=== PATIENT | female | born 2000 | race Caucasian/White ===

== ENCOUNTER 2020-06-13 06:09 | Emergency (ER) | payer SELFPAY ==
[2020-06-13 06:13] VITALS: BP 111/69; PULSE 85; RESP 16; TEMP 36.4; O2SAT 99; BMI 28.3
--- NOTE | 2020-06-13 06:20 | ED_ITS ---
HPI - Eye Problem General: Chief complaint: Eye Problems Stated complaint: Swelling in left eye Time Seen by Provider: 06/13/20 06:20 Source: patient Mode of arrival: ambulatory Limitations: no limitations History of Present Illness: HPI Narrative: Ximena is a nice 19-year-old female who comes in complaining of left eyelid swelling and eye irritation. She denies any vision loss or blurry vision. She denies any double vision. He states the pain is mostly on the surface of her eye and she has had some clear to slightly yellowish/green drainage from her eye at times. She feels as though her left eyelid is slightly swollen. She denies any injury to the eye. She denies any sensation of a foreign body in her eye. She states the pain is that of just a dull minor burning. She denies any other complaints or concerns. Associated symptoms: Denies fever(s), headache(s), nausea, neck pain or vomiting Review of Systems Const: Denies: fever(s), chills, body aches, fatigue, malaise or diaphoresis Eyes: Reports: eye discomfort; Denies: change in vision, blurry vision, photophobia, eye discharge, eye redness, yellow eyes or decreased night vision ENMT: Denies: throat pain, odynophagia, hoarseness, swelling of lips/tongue, ear or mastoid pain, ear discharge, change in hearing or nasal discharge Card: Denies: chest pain, palpitations, irregular heart rhythm, edema, lightheadedness, syncope, pre-syncope, dyspnea on exertion or orthopnea Resp: Denies: dyspnea, productive cough, non-productive cough, wheezing, hemoptysis or chest congestion GI: Denies: abdominal pain, nausea, vomiting, hematemesis, coffee ground emesis, heartburn, diarrhea, constipation, GI cramping, hematochezia or melena : Denies: flank pain, dysuria, urinary frequency, urinary urgency or hematuria Musc: Denies: neck pain, back pain, extremity pain, extremity swelling, joint pain, joint swelling, joint redness, joint warmth or joint stiffness Skin/Breast: Denies: rash, pruritus, erythema, skin pain or skin tenderness Neuro: Denies: headache(s), numbness in extremities, weakness in extremities, sensory changes, lack of coordination, difficulty walking, dizziness, vertigo, confusion, Slurred speech present or seizure-like activity Scott/Lymph: Denies: easy bruising, easy bleeding, petechiae, purpura or enlarged lymph nodes All/Imm: Denies: urticaria, throat swelling, tongue swelling, facial swelling or acute wheezing PFSH ED PFSH: Medical History No pertinent past medical history Physical Exam Const: COMMON NORMALS: no acute distress, patient oriented x3, no limitations and alert GENERAL APPEARANCE: cooperative HENMT: COMMON NORMALS: normocephalic, atraumatic, external ears normal, EAC's normal and Normal external nose present HEAD & SCALP: normal to inspection, normocephalic and atraumatic FACE & SINUS: normal facial exam and face symmetric NOSE: Normal external nose present and Normal nares present EXTERNAL EAR: Yes external ears normal EXTERNAL AUDITORY CANAL: EAC's normal MOUTH: Normal oral and palatal mucosa present, lip normal and tongue normal Eye: COMMON NORMALS: Equal, round and reactive pupils present and EOMs intact bilaterally GENERAL EYE: appearance normal, both eyes and all related structures ALIGNMENT: Yes alignment normal PERIORBITAL: periorbital findings normal EYELID: eyelid abnormality left upper eyelid swelling CONJUNCTIVA: Yes conjunctival abnormal positive left discharge mucoid SCLERA: sclerae normal PUPIL: Yes Equal, round and reactive pupils present Neck/C-Spine: COMMON NORMALS: full ROM, no lymphadenopathy, supple, no meningeal signs and no JVD GENERAL: Yes normal visual inspection and Yes trachea midline Chest: COMMONS NORMALS: normal inspection of the chest and normal palpation of entire chest wall Resp: COMMON NORMALS: normal respiratory effort, No retractions, No use of accessory muscles and clear to auscultation bilaterally EFFORT & INSPECTION: Yes able to speak in complete sentences and Yes symmetric chest movement AUSCULTATION: clear to auscultation bilaterally, no crackles, no rales, no rhonchi and no wheezes Cardio: COMMON NORMALS: no JVD, regular rate, regular rhythm, S1 normal heart sound present and S2 normal heart sound present RATE: regular rate RHYTHM: regular rhythm HEART SOUNDS: S1 normal heart sound present, S2 normal heart sound present, no click, no gallops, no murmurs and no rubs GI: COMMON NORMALS: Soft to palpation and No hepatosplenomegaly present PALPATION: Yes Soft to palpation, No Tenderness to palpation present (GI), No Guarding due to palpation present (GI), No Rigid due to palpation, Yes No hepatosplenomegaly present, No Hernia present, No Palpable mass present and No Pulsatile mass present : COMMON NORMALS: Yes no CVA tenderness BLADDER/KIDNEY EXAM: Yes no CVA tenderness EXTERNAL FEMALE EXAM: No Hernia present Back/Pelvis: COMMON NORMALS: no CVA tenderness, thoracic and lumbar spine normal to inspection, no thoracic nor lumbar tenderness and thoraco-lumbar ROM normal Extremity: COMMON NORMALS: normal to inspection, full ROM, capillary refill normal, no joint enlargement, no clubbing, cyanosis or edema and no calf tenderness Neuro: COMMON NORMALS: patient oriented x3, CN's II-XII intact bilaterally, moves all extremities, no focal motor deficits and no sensory deficits noted SENSORIUM/ORIENTATION: Yes alert MENINGEAL SIGNS: Yes no meningeal signs SPEECH: speech normal Psych: COMMON NORMALS: mental status grossly normal, Normal thought process present, cooperative, normal affect, speech normal and activity/motor behavior normal SPEECH: Yes normal speech THOUGHT PROCESS: Normal thought process present Skin: COMMON NORMALS: no rashes or lesions noted, turgor normal, no jaundice, no petechiae and no mottling GENERAL SKIN EXAM: no rashes or lesions noted and turgor normal Course Vital Signs: Vital signs: Vital Signs Temperature 97.5 F L 06/13/20 06:13 Pulse Rate 87 06/13/20 06:28 Respiratory Rate 16 06/13/20 06:13 Blood Pressure 111/69 06/13/20 06:13 Pulse Oximetry 96 06/13/20 06:28 MDM - Eye Problem MDM Narrative: Medical decision making narrative: Ximena is a nice 19-year-old female who comes in with the complaints of eye discomfort. Her exam and history are consistent with conjunctivitis. I saw no sign of foreign body. Her vision was normal. Patient has no headache or anything to suggest something more serious. Patient is willing to try erythromycin ointment and to follow-up as directed. She understands return for symptoms change or worsen. Discharge Plan Discharge Patient Disposition: Home Clinical Impression: Conjunctivitis Qualifiers: Conjunctivitis type: acute Acute conjunctivitis type: bacterial Laterality: r ight Qualified Code(s): H10.31 - Unspecified acute conjunctivitis, right eye Condition: Stable Prescriptions: New erythromycin 5 mg/gram (0.5 %) ointment 1 applic ophthalmic (eye) Q4H Qty: 3.5 RF: 0 Discharge Orders: Discharge Order (Routine); Ordered 06/13/20 Ordered By: Sirisha Sanchez Referrals: Evgeny De MD [Physician] - 1-3 days Evgeny Camara MD [Primary Care Provider] - 1-3 days Discharge Diet: Advance as tolerated Discharge Activity: Resume usual activity Patient Instructions: Conjunctivitis (ED) Activity Restrictions/Additional Instructions: Please return to the ER immediately for any of the signs or symptoms listed on your discharge instruction sheets, worsening/changing of your symptoms, you are not getting better as quickly as expected, or for ANY other cause or concerns. Coding Level of Care Code ED Developer Advocate for Chg Fwd Exam Comprehensive
[2020-06-13 06:28] VITALS: PULSE 87; O2SAT 96
== END 2020-06-13 06:28 | disposition home or self-care (01) ==
PROVIDERS: Emergency Provider Emergency Medicine; PCP Family Medicine
DX: H10.31 Unspecified acute conjunctivitis, right eye (principal)
CPT/HCPCS: 12345; 99281; 99282

== ENCOUNTER 2020-07-17 22:43 | Inpatient (IN) | payer SELFPAY ==
[2020-07-17 22:45] VITALS: BP 113/65; PULSE 103; RESP 18; TEMP 36.8; O2SAT 93
--- NOTE | 2020-07-17 23:11 | CTR_ITS ---
PROCEDURE INFORMATION: Exam: CT Head Without Contrast Exam date and time: 07/17/2020 11:27 PM Age: 19 years old Clinical indication: Altered mental status/memory loss; Confusion or disorientation; Patient HX: ETOH, intubated; Additional info: AMS TECHNIQUE: Imaging protocol: Computed tomography of the head without contrast. Radiation optimization: All CT scans at this facility use at least one of these dose optimization techniques: automated exposure control; mA and/or kV adjustment per patient size (includes targeted exams where dose is matched to clinical indication); or iterative reconstruction. COMPARISON: CT head wo con* [id number] 09/29/2018 11:01 AM RADIATION DOSE METRICS: Total DLP (mGy-cm): 791.47 FINDINGS: Brain: There are no areas of abnormally increased or decreased brain parenchymal attenuation. No abnormal intra-axial or extra-axial fluid collections are identified. There is no midline shift. No intracranial hemorrhage identified. Ventricles: The ventricular system is within normal limits for size and configuration. Bones/joints: Unremarkable as visualized. Sinuses: Visualized sinuses are unremarkable. No fluid levels. Mastoid air cells: Visualized mastoid air cells are well aerated. Soft tissues: Unremarkable. CT/CT head wo con* [id number] IMPRESSION: 1. No acute intracranial abnormality identified. Radiation Dose CTDIVOL = (mGy): DLP = 791.47 (mGy-cm)
--- NOTE | 2020-07-17 23:11 | CTR_ITS ---
PROCEDURE INFORMATION: Exam: CT Cervical Spine Without Contrast Exam date and time: 07/17/2020 11:27 PM Age: 19 years old Clinical indication: Other: AMS TECHNIQUE: Imaging protocol: Computed tomography images of the cervical spine without contrast. Radiation optimization: All CT scans at this facility use at least one of these dose optimization techniques: automated exposure control; mA and/or kV adjustment per patient size (includes targeted exams where dose is matched to clinical indication); or iterative reconstruction. COMPARISON: CT Cervical Spine wo* [id number] 09/29/2018 11:06 AM RADIATION DOSE METRICS: Total DLP (mGy-cm): 721.37 FINDINGS: Vertebrae: There is a normal cervical lordosis. There is normal alignment of the cervical spine. No fractures or dislocations identified. Vertebral body heights are well maintained throughout. Discs/Spinal canal/Neural foramina: Intervertebral disc heights are well maintained throughout. The bony spinal canal is patent. Soft tissues: No prevertebral soft tissue swelling identified. Lungs: Lung apices are unremarkable as visualized. CT/CT cervical spin wo con* [id number] IMPRESSION: 1. No fractures or dislocations identified involving the cervical spine. Radiation Dose CTDIVOL = (mGy): DLP = 721.37 (mGy-cm)
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
[2020-07-17] MEDS: succinylcholine 20 mg/mL SDV 10mL 200 MG IVP (23:18)
[2020-07-17] MEDS: midazolam 1 mg/mL INJ 2 mL 4 MG IVP (23:25)
[2020-07-17 23:30] LABS: Basophils # 0.1 10^3/uL (0.0-0.1); Basophils % 0.6 %; Eosinophils # 0.1 10^3/uL (0.0-0.8); Hemoglobin 14.4 g/dL (11.5-15.3); Lymphocytes # 3.4 10^3/uL (1.5-6.5); Lymphocytes % 34.5 %; Mean Corpuscular HGB Conc 33.5 g/dL (30.0-36.0); Mean Corpuscular Hemoglobin 31.2 pg (28.0-34.0); Mean Corpuscular Volume 93.1 fL (81-99); Mean Platelet Volume 9.3 fL (7.4-10.4); Monocytes # 0.4 10^3/uL (0.2-0.9); Monocytes % 4.1 %; Neutrophils # 5.87 10^3/uL (1.8-8.0); Neutrophils % 59.3 %; Nucleated Red Blood Cells % 0 %; Platelet Count 297 10^3/cmm (130-400); Red Blood Count 4.62 10^6/uL (4.1-5.3); Red Cell Distribution Width 12.3 % (12.1-15.1); White Blood Count 9.9 10^3/uL (4.5-13.0)
[2020-07-17] MEDS: sodium chloride 0.9% 1,000 ML 999 ML IV (23:30)
[2020-07-17 23:31] VITALS: RESP 12
[2020-07-17 23:50] LABS: Add Urine Microscopic? YES; Bilirubin Urine Neg (Negative); Blood Urine 3+ (Negative); Glucose Urine UA Norm (Normal); Ketones Urine Negative (Negative); Leukocyte Esterase Urine Negative (Negative); Nitrate Urine Negative (Negative); Protein Urine 1+ (Negative); Urine Appearance Clear (CLEAR); Urine Color Straw (Yellow); Urobilinogen Urine Norm (Negative); pH Urine 6 (5-7)
[2020-07-17 23:52] LABS: Alanine Aminotransferase 17 U/L (0-33); Albumin Level 4.7 g/dL (3.5-5.2); Alkaline Phosphatase 65 IU/L (35-105); Aspartate Amino Transferase 22 U/L (0-32); Blood Urea Nitrogen 13 mg/dL (6-20); Calcium 9.1 mg/dL (8.5-10.5); Carbon Dioxide 21 mmol/L (22-29); Chloride 105 mmol/L (98-107); Globulin 2.8 g/dL (1.3-4.6); Glomerular Filtration Rate 106.7 mL/min (90-130); Glucose 115 mg/dL (65-115); Magnesium 2.3 mg/dL (1.7-2.3); Osmolality Calculated 297 mOsm/kg (285-295); Sodium 143 mmol/L (136-145); Total Bilirubin 0.4 mg/dL (0.15-1.2); Total Protein 7.5 g/dL (6.6-8.7)
[2020-07-17 23:53] LABS: Acetaminophen < 5.0 ug/mL (10-30); Salicylate < 0.3 mg/dL (3-10)
[2020-07-17 23:54] LABS: Alcohol Level 358 mg/dL (0-10)
[2020-07-17 23:59] LABS: Add Urine Culture? No; Amorphous Sediment Urine 2+ /hpf; Bacteria Urine 1+ /hpf; RBC Urine 0-4 /hpf (0-2); Squamous Epithelial Cell Urine 0-4 /hpf (0-5); WBC Urine 0-4 /hpf (0-5)
[2020-07-18] VITALS (17 sets, daily range): BP systolic 86–139; BP diastolic 42–95; PULSE 78–146; RESP 12–21; TEMP 36.6; O2SAT 89–100
[2020-07-18] LABS: Amphetamines Screen Urine Negative (Negative); Barbiturates Screen Urine Negative (Negative); Benzodiazepines Screen Urine Negative (Negative); Cocaine Screen Urine Negative (Negative); Opiate Screen Urine Negative (Negative); PCP Screen Urine Negative (Negative); THC Screen Urine Positive (Negative)
[2020-07-18 00:23] LABS: HCG, Serum Qual Negative (Negative)
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
[2020-07-18 01:51] LABS: ABG PCO2 35.6 mmHg (35-45); ABG PH Result 7.34 (7.35-7.45); Arterial Blood Gas Hematocrit 41.7 % (37-47); Base Excess ABG -5.8 mmol/L (-2.0-2.0); Blood Gas Sample Site Brachial, right; Blood Gas Sample Type Arterial; Blood Gas Tidal Volume 0.45; HCO3 ABG 19.2 mmol/L (22-26); Oxygen Device VENT
[2020-07-18] MEDS: potassium chloride premix 100 ML 50 MEQ IV (01:57)
--- NOTE | 2020-07-18 02:21 | XRR_ITS ---
PROCEDURE INFORMATION: Exam: XR Chest, 1 View Exam date and time: 07/18/2020 3:08 AM Age: 19 years old Clinical indication: Device placement; Patient HX: ETOH, intubated; Additional info: Tube placement TECHNIQUE: Imaging protocol: XR of the chest Views: 1 view. COMPARISON: No relevant prior studies available. FINDINGS: Tubes, catheters and devices: Endotracheal tube, tip 2.8 cm above may. Nasogastric tube in the left upper quadrant of the abdomen at the expected region of the gastric body. Lungs: The lungs are clear bilaterally. Pulmonary vasculature within normal limits. Pleural space: No visible pneumothorax or pleural effusion. Heart/Mediastinum: Cardiomediastinal silhouette contour is within normal limits. Bones/joints: No emergent findings identified. XR/XR chest 1V [id number] IMPRESSION: 1. Endotracheal tube, tip 2.8 cm above may.
--- NOTE | 2020-07-18 02:23 | ECG_ITS ---
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 Measurements Intervals [place] Rate: 85 P: 52 OR: 169 QRS: 29 QRSD: 95 T: 37 QT: 384 QTc: 458 Interpretive Statements SINUS RHYTHM Compared to ECG 09/29/2018 10:17:40 Sinus tachycardia no longer present Intraventricular conduction delay no longer present T-wave abnormality no longer present Electronically Signed On 07-18-2020 17:50:43 TRUCK AND TRANSPORT MECHANIC by Dillon Shah M.D. [id number]
--- NOTE | 2020-07-18 03:22 | PC.NURSE ---
This RN agrees with data center solutions architect assessment
[2020-07-18] MEDS: enoxaparin 40 mg/0.4 mL Syringe SUBCUT (03:23)
[2020-07-18] MEDS: dextrose 5%-ns 0.45% + KCl 40 1,000 ML 75 MEQ IV (03:23)
[2020-07-18 05:06] LABS: Basophils % 0.4 %; Eosinophils # 0.1 10^3/uL (0.0-0.8); Eosinophils % 0.6 %; Hematocrit 38.1 % (37.0-47.0); Hemoglobin 12.6 g/dL (11.5-15.3); Lymphocytes % 28.8 %; Mean Corpuscular HGB Conc 33.1 g/dL (30.0-36.0); Mean Corpuscular Hemoglobin 31.3 pg (28.0-34.0); Mean Corpuscular Volume 94.8 fL (81-99); Mean Platelet Volume 9.4 fL (7.4-10.4); Monocytes # 0.8 10^3/uL (0.2-0.9); Monocytes % 7.2 %; Neutrophils # 6.46 10^3/uL (1.8-8.0); Neutrophils % 62.4 %; Nucleated Red Blood Cells % 0 %; Platelet Count 263 10^3/cmm (130-400); Red Blood Count 4.02 10^6/uL (4.1-5.3); Red Cell Distribution Width 12.7 % (12.1-15.1); White Blood Count 10.4 10^3/uL (4.5-13.0)
[2020-07-18 05:31] LABS: Lactate (Lactic Acid level) 2.2 mmol/L (0.5-2.2)
[2020-07-18 05:44] LABS: Anion Gap 16.8 (5-19); Blood Urea Nitrogen 10 mg/dL (6-20); Calcium 7.9 mg/dL (8.5-10.5); Carbon Dioxide 19 mmol/L (22-29); Chloride 110 mmol/L (98-107); Glomerular Filtration Rate 203.5 mL/min (90-130); Glucose 136 mg/dL (65-115); Magnesium 1.8 mg/dL (1.7-2.3); Osmolality Calculated 295 mOsm/kg (285-295); Potassium 3.8 mmol/L (3.5-5.1); Sodium 142 mmol/L (136-145)
--- NOTE | 2020-07-18 07:33 | PC.NURSE ---
CIWA protocol: Pt sedated and intubated. Unable to assess appropriately at this time.
[2020-07-18] MEDS: LORazepam 2 mg/mL INJ 1 mL IM (08:00)
--- NOTE | 2020-07-18 08:00 | PC.RESP ---
pt. self extubated . code 10 called on roomair no resp. distress
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
--- NOTE | 2020-07-19 14:28 | PC.RESP ---
Smoking Cessation information sent to patient.
== END 2020-07-18 08:40 | disposition left against medical advice (07) | DRG 208 ==
LOC: ER 22:47 → ICU 07-18 00:40
PROVIDERS: Admitting Provider Internal Medicine; Emergency Provider Emergency Medicine; PCP Family Medicine; Visit Provider Student in an Organized Health Care Education/Training Program
DX: J96.01 Acute respiratory failure with hypoxia (principal); F19.159 Other psychoactive substance abuse with psychoactive substance-induced psychotic disorder, unspecified; F10.129 Alcohol abuse with intoxication, unspecified; Y90.8 Blood alcohol level of 240 mg/100 ml or more; E87.6 Hypokalemia; F19.10 Other psychoactive substance abuse, uncomplicated; F17.210 Nicotine dependence, cigarettes, uncomplicated; Z53.29 Procedure and treatment not carried out because of patient's decision for other reasons
CPT/HCPCS: 12345; 31500; 36415; 36600; 70450; 71045; 72125; 80048; 80053; 80306; 80307; 81001; 82803; 83605; 83735; 84703; 85025; 93005; 94002; 94799; 96372; 99283; J0330; J1650; J2060; J2250; J3010; J3411; J3480; J3490; J7030

== ENCOUNTER 2022-06-30 05:50 | Outpatient (CLI) | payer BC, MEDICAID, SELFPAY ==
[2022-06-30 05:50] VITALS: BMI 30.7
[2022-06-30 06:11] VITALS: BP 118/72; PULSE 134
[2022-06-30 06:33] VITALS: BP 109/67; PULSE 125
[2022-06-30 06:35] VITALS: BP 109/67; PULSE 125; RESP 16; TEMP 37.5
== END 2022-06-30 06:38 | disposition home or self-care (01) ==
LOC: OPOB 05:57 → OBGYN 05:58
PROVIDERS: PCP Family Medicine; Visit Provider Family Medicine
DX: O26.899 Other specified pregnancy related conditions, unspecified trimester (principal); Z3A.00 Weeks of gestation of pregnancy not specified; R10.9 Unspecified abdominal pain
CPT/HCPCS: 59025; 99211

== ENCOUNTER 2022-06-30 21:30 | Inpatient (IN) | payer BC, MEDICAID, SELFPAY ==
[2022-06-30 21:28] VITALS: BP 102/61; PULSE 122; TEMP 36.6
[2022-06-30 21:30] VITALS: BMI 30.7
[2022-06-30 21:39] VITALS: BP 108/63; PULSE 118
[2022-06-30 21:55] VITALS: RESP 18
[2022-06-30] MEDS: oxytocin 30 UNIT/500 ML BAG IV (23:22)
[2022-06-30] MEDS: dextrose 5%-lactated ringers 1,000 ML 125 ML IV (23:22)
[2022-06-30 23:25] VITALS: BP 124/69; PULSE 105
[2022-06-30 23:45] VITALS: BP 106/70; PULSE 110
[2022-07-01] VITALS (110 sets, daily range): BP systolic 86–137; BP diastolic 50–83; PULSE 87–123; RESP 18; TEMP 36.2–37.4; O2SAT 97–100
[2022-07-01 00:04] LABS: Basophils # 0.1 10^3/uL (0.0-0.1); Basophils % 0.5 %; Eosinophils % 0.2 %; Hematocrit 32.2 % (37.0-47.0); Hemoglobin 10.5 g/dL (11.5-15.3); Lymphocytes # 1.7 10^3/uL (0.8-4.8); Lymphocytes % 11.5 %; Mean Corpuscular HGB Conc 32.6 g/dL (30.0-36.0); Mean Corpuscular Hemoglobin 29.7 pg (28.0-34.0); Mean Platelet Volume 10.8 fL (7.4-10.4); Monocytes # 1.6 10^3/uL (0.2-0.9); Monocytes % 10.7 %; Neutrophils # 10.78 10^3/uL (1.8-7.7); Neutrophils % 73.3 %; Nucleated Red Blood Cells % 0.1 %; Platelet Count 282 10^3/cmm (130-400); Red Blood Count 3.54 10^6/uL (4.1-5.3); Red Cell Distribution Width 14.6 % (12.1-15.1); White Blood Count 14.7 10^3/uL (4.0-10.0)
[2022-07-01] MEDS: fentaNYL 50 mcg/mL INJ 2mL IVP (03:32)
--- NOTE | 2022-07-01 05:47 | ANES.PREANE2 ---
Pre-Anesthetic Assessment Height/Weight: Height 1.65 m Weight 83.915 kg Temp Pulse Resp BP 98.2 F 115 H 18 106/59 07/01/22 05:39 07/01/22 05:28 07/01/22 03:32 07/01/22 05:28 Preop Diagnosis: labor epidural Was Beta Adrienne taken within 24 hours: N/A Was Clonidine taken within 24 hours: N/A Last Intake: 20:00 Social No alcohol and No tobacco 1/2 pack(s) per day 2 pack years Exam alert, oriented x 3, clear to auscultation bilaterally and regular rate & rhythm Airway Submandibular: within normal limits Cervical ROM: within normal limits Mallampati: Class I Dentition: full Pulmonary None reported flu A in house CV/HEM None reported None reported Hepatic None reported GI Gastroesophageal Reflux Disease IBS Metabolic None reported Musc/skel None reported Neuropsych None reported Anesthetic Plan ASA status: 2 Anesthesia: Regional (specify below) (epi) Medications/Allergies Home Medications Medication Instructions Recorded Confirmed Last Taken Type Vitamin 1 tab PO DAILY 06/30/22 06/30/22 06/29/22 08:00 History acetaminophen 325 mg capsule 325 mg PO 1XD PRN fever 06/30/22 06/30/22 06/30/22 03:30 History (Tylenol) Allergies Allergy/AdvReac Type Severity Reaction Status Date / Time albuterol Allergy Unknown Verified 06/13/20 06:13 Current Medications Generic Name Dose Route Start Last Admin Trade Name Freq PRN Reason Stop Dose Admin Fentanyl 25 - 100 mcg 07/01/22 03:13 07/01/22 03:32 Fentanyl 50 Mcg/Ml Inj 2ml IVP 25 mcg Q1H PRN Administration SEVERE PAIN Oxytocin 30 unit in 500 mls @ 1 mls/hr 06/30/22 22:30 06/30/22 23:22 Pitocin IV 1 milliunit/min .Q24H LAUREN 1 mls/hr Administration Protocol 1 MILLIUNIT/MIN Dextrose/Lactated Ringer's 1,000 mls @ 125 mls/hr 06/30/22 22:00 06/30/22 23:22 Dextrose 5%-Lactated Ringers IV 125 mls/hr .Q8H LAUREN Administration PFSH Anesthesia Medical History (Updated 07/19/20 @ 00:00 by ) Alcohol abuse Nicotine abuse No pertinent past medical history Surgical History (Updated 07/18/20 @ 00:26 by Nando Davies MD) No pertinent past surgical history Family History (Updated 07/18/20 @ 00:27 by Nando Davies MD) Other Family history non-contributory Social History (Updated 07/18/20 @ 00:27 by Nando Davies MD) Smoking and tobacco status: current every day smoker Alcohol intake: current Household members: significant other Housing: House Female Reproductive History : 1 Data Anesthesia 06/30/22 23:04 Short CBC 06/30/22 Range/Units 23:04 WBC 14.7 H (4.0-10.0) 10^3/uL Hgb 10.5 L (11.5-15.3) g/dL Hct 32.2 L (37.0-47.0) % MCV 91.0 (81-99) fl Plt Count 282 (130-400) 10^3/cmm Neut % (Auto) 73.3 % Neut # (Auto) 10.78 H (1.8-7.7) 10^3/uL Cardiac Studies: No Data to Display
--- NOTE | 2022-07-01 06:29 | ANES.PROC ---
Anesthesia Procedures Procedure/Date: 07/01/22 Epidural: Time Out Performed: Yes Consents Signed: Procedure Consent and NPO Consent Consent: requested by attending/covering physician, from patient, risks and benefits reviewed and patient agrees to proceed Lumbar Level: L3-L4 Epidural position: sitting Epidural procedure: sterile prep of area (betadine), 1% lidocaine to numb the area (3ml), 18 g needle, negative for paresthesia passed, neg for paresthesia, test dose given, 1.5% xylocaine 1:200k epi (3ml/2ml), 0.2% Ropivacaine bolus ml (5ml), placed PCEA, no systemic response, sterile dressing applied, L.U.D. no apparent complications and 0.2% Ropiavacaine @ mls/hr (13ml/hr)
[2022-07-01] MEDS: lactated ringers 1,000 ML 999 ML IV (07:10)
--- NOTE | 2022-07-01 09:36 | PM.OBGYHP ---
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 Patient was found to be ruptured and had meconium. Patient was 1 cm dilation at presentation. Was not having any significant contractions. Patient has been having flulike symptoms and been exposed to flu A. Overall her has been unremarkable except for late entrance into care and positive marijuana on initial lab work. Patient was started on Pitocin last night and developed contractions to the point where they were painful enough for her to request an epidural. And has changed slowly to 3 cm dilation. Present Details : 1 Para: 0 Review of Systems General: Reports: 10 or more systems reviewed and unremarkable except in HPI and below Const: Reports: chills, body aches and fatigue ENMT: Reports: throat pain and nasal congestion Resp: Reports: non-productive cough Medications/Allergies Home Medications Medication Instructions Recorded Confirmed Last Taken Type Vitamin 1 tab PO DAILY 06/30/22 06/30/22 06/29/22 08:00 History acetaminophen 325 mg capsule 325 mg PO 1XD PRN fever 06/30/22 06/30/22 06/30/22 03:30 History (Tylenol) Allergies Allergy/AdvReac Type Severity Reaction Status Date / Time albuterol Allergy Unknown Verified 06/13/20 06:13 PFSH 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 PFSH: Medical History (Updated 07/01/22 @ 09:45 by Aidan Gonzalez MD) Alcohol abuse Nicotine abuse No pertinent past medical history Surgical History (Updated 07/18/20 @ 00:26 by Nando Davies MD) No pertinent past surgical history Family History (Updated 07/18/20 @ 00:27 by Nando Davies MD) Other Family history non-contributory Social History (Updated 07/18/20 @ 00:27 by Nando Daveis MD) Smoking and tobacco status: current every day smoker Alcohol intake: current Household members: significant other Housing: House Vitals/I&O/Wt Last Vital Signs Temp 97.7 F 07/01/22 06:23 Pulse 112 H 07/01/22 09:24 Resp 18 07/01/22 04:21 BP 112/51 07/01/22 09:24 Pulse Ox 100 07/01/22 07:11 O2 Del Method 06/30/22 21:30 06/30/22 07/01/22 07/01/22 22:59 06:59 14:59 Intake Total 6.633 / 6.633 33.983 / 33.983 Balance 6.633 / 6.633 33.983 / 33.983 Weight last 48 hrs Weight 83.915 kg Physical Exam Const: COMMON NORMALS: no acute distress and alert HENMT: COMMON NORMALS: normocephalic and moist oral mucous membranes Neck/C-Spine: COMMON NORMALS: no lymphadenopathy and supple Chest: COMMONS NORMALS: normal inspection of the chest Resp: COMMON NORMALS: normal respiratory effort, No retractions and clear to auscultation bilaterally Cardio: COMMON NORMALS: regular rate and regular rhythm Extremity: COMMON NORMALS: no clubbing, cyanosis or edema Psych: COMMON NORMALS: mental status grossly normal and normal affect Skin: COMMON NORMALS: no rashes or lesions noted Urinary Catheter Management: Rose: Cath Placed During This Visit: yes Urinary Catheter Date of Insertion: 07/01/22 Urinary Catheter Time of Insertion: 07:15 Data 06/30/22 23:04 A&P Assessment and plan (1) Term : Routine labor management (2) Premature rupture of membranes (PROM) affecting first : continue with augmentation of labor (3) Meconium in amniotic fluid: 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 Attestations Medical Necessity Statement*: Anticipate greater than 2 midnight stay Coding Level of Care Code Acute System Support Developer for Chg Fwd Diagnoses Term Z34.90 Premature rupture of membranes (PROM) affecting first O42.90 Meconium in amniotic fluid P96.83
[2022-07-01] MEDS: dextrose 5%-lactated ringers 1,000 ML 125 ML IV (10:50)
[2022-07-01] MEDS: acetaminophen 325 mg Tablet 650 MG PO (15:59)
--- NOTE | 2022-07-01 19:43 | PM.OPHPUD ---
Labor & Delivery H&P Update Date of Procedure: July 01, 2022 Date H&P Performed: 07/01/22 Changes to previous documentation: The patient has been on Pitocin all day without significant change. Patient has gone greater than 6 hours without cervical changes. Cussed options with the patient the patient opted to proceed with . The heart tones have been reassuring throughout the day. Admission Diagnosis: Preop diagnosis: labor Primary indication for procedure: Failure to progress Planned procedure: Primary low transverse Related Problem List Diagnoses (1) Failure to progress in labor: Plan to proceed with . Risks and benefits were discussed with the patient and informed consent was obtained. (2) Meconium in amniotic fluid: (3) Premature rupture of membranes (PROM) affecting first : (4) Term :
[2022-07-01] MEDS: citric acid-sodium citrate 30 mL UDC PO (20:06)
[2022-07-01] MEDS: metoclopramide 5 mg/mL SDV 2 mL 10 MG IVP (20:08)
[2022-07-01] MEDS: famotidine 20 mg/2 mL INJ IVP (20:08)
--- NOTE | 2022-07-01 21:43 | PM.OP ---
Operative Report Date of procedure: July 01, 2022 Pre-op diagnosis: 39-week 6-day IUP, failure to progress Post-op diagnosis: Same Post-op findings: Viable infant male Procedure done: Primary low transverse Surgeon: Dr. Romeo Gonzalez Senior Communications Specialist: Dr. Tk Perdomo Estimated blood loss: 300cc Complications: none Brief History: This is a 21-year-old that presented at 39 weeks 5 days with premature rupture membranes. Patient had failure to progress after dosing augmentation. Procedure: Patient was taken to the operating room where epidural anesthesia was found to be adequate. She was prepped and draped in the normal sterile fashion in a dorsal supine position with a leftward tilt. Skin incision was made with scalpel and carried out to the underlying layer of fascia which was incised in the midline. Fascial incision was then extended laterally with Jonas scissors bilaterally. The superior aspect of the fascial incision was grasped with Minh clamps elevated and dissected off the rectus muscles with Jonas's. The inferior aspect of the fascial incision was grasped with Mauricio's and in likewise manner was elevated and dissected off with Jonas's. Peritoneum was then entered digitally and extended with good visualization of the bladder. Bladder blade was then inserted. Uterine incision was then created in a transverse fashion in the lower uterine segment with scalpel and extended digitally. Meconium stained fluid noted. 's head was delivered atraumatically nose and mouth suctioned with bulb, cord clamped and cut and handed off to waiting nursing staff. The placenta was then expressed and uterus exteriorized from the abdomen. And cleared of all clots and debris. Uterine incision was then repaired in a running locked fashion with 0 Vicryl. A second suture of the same was then used to imbricate the incision. Excellent hemostasis was noted. Uterus was then returned to the abdomen, gutters were cleared of all clots and debris and wound was irrigated. Peritoneum was then closed in a running fashion with 3-0 Vicryl. Fascia was then closed with 0 Vicryl in a running fashion. Subcutaneous tissue was closed with 3-0 Vicryl and skin was closed with 4-0 Monocryl on a Csear needle. The incision was reinforced with Steri-Strips and pressure bandage was over the wound. Sponge, laps, and needle count was correct x2. 2 g Ancef was given prior to the procedure. Patient was taken recovery in stable condition.
--- NOTE | 2022-07-01 22:00 | ANE.PACU2 ---
Inpatient post-anesthesia follow up: Airway intact: Yes Vital signs: Temperature 97.2 F Pulse Rate 93 Respiratory Rate 18 Blood Pressure 110/58 Pulse Oximetry 98 Oxygen Delivery Me thod Room Air Oxygen Flow Rate Fraction of Inspir ed Oxygen Hydration adequate: Yes Nausea and vomiting: No Pain level: 1 Mental status: Baseline
[2022-07-02] VITALS (20 sets, daily range): BP systolic 94–127; BP diastolic 52–86; PULSE 79–100; RESP 16; TEMP 36.1
[2022-07-02] MEDS: dextrose 5%-lactated ringers 1,000 ML 125 ML IV ×2 (01:59→08:27)
[2022-07-02] MEDS: HYDROcodone-acetaminophen 5-325 mg Tablet PO ×4 (02:37→20:05)
[2022-07-02] MEDS: ketorolac 30 mg/mL INJ IVP ×3 (03:45→15:40)
[2022-07-02] MEDS: prenatal vitamin Capsule 1 CAP PO (08:26)
[2022-07-02] MEDS: docusate sodium 100 mg Capsule PO ×2 (08:26→17:33)
[2022-07-02] MEDS: ferrous sulfate EC 325 mg Tablet PO ×2 (08:26→17:33)
--- NOTE | 2022-07-02 09:28 | PM.OBGYPN ---
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 Patient had no acute events overnight. VSS. Patient has been up out of bed, but catheter is still place. Labor: Station: -2 Amniotic Membrane Status: Leaking Monitor Mode: External Contraction Pattern: Occasional Post /CS: Patient comments OB post-: no complaints and pain well controlled [place] baby status: doing well feeding status: exclusively breast feeding Vitals/I&O/Wt Last Vital Signs Temp 97.0 F L 07/02/22 08:42 Pulse 89 07/02/22 08:42 Resp 16 07/02/22 02:20 BP 119/76 07/02/22 08:42 Pulse Ox 98 07/01/22 22:05 O2 Del Method 07/01/22 22:05 07/01/22 07/02/22 07/02/22 22:59 06:59 14:59 Intake Total 1089.267 / 2265.950 1200 / 3465.950 Output Total 800 / 1250 1950 / 3200 Balance 289.267 / 1015.950 -750 / 265.950 Weight last 48 hrs Weight 83.915 kg Physical Exam Const: COMMON NORMALS: no acute distress and healthy appearing Neck/C-Spine: COMMON NORMALS: supple Resp: COMMON NORMALS: normal respiratory effort and No retractions Cardio: COMMON NORMALS: regular rate and regular rhythm RATE: regular rate RHYTHM: regular rhythm GI: COMMON NORMALS: Normal to inspection, nondistended, normoactive bowel sounds present and Soft to palpation PALPATION: Yes Soft to palpation Extremity: COMMON NORMALS: no clubbing, cyanosis or edema Neuro: COMMON NORMALS: moves all extremities Psych: COMMON NORMALS: mental status grossly normal and normal affect Skin: COMMON NORMALS: no rashes or lesions noted GENERAL SKIN EXAM: no rashes or lesions noted WOUNDS: Yes surgical site (CDI) Urinary Catheter Management: Rose: Cath Placed During This Visit: yes Reason for Continuing Indwelling Catheter: Required Immobilization for Trauma or Surgery or Anesthesia Urinary Catheter Date of Insertion: 07/01/22 Urinary Catheter Time of Insertion: 07:15 Data 06/30/22 23:04 A&P Assessment and plan (1) care following delivery: continue routine post care post csection. Attestations Medical Necessity Statement*: Anticipate greater than 2 midnight stay. Coding Level of Care Code Acute Maternity Floor Supervisor for Chg Fwd Diagnoses care following delivery Z39.2
[2022-07-02 14:43] LABS: Hematocrit 29.1 % (37.0-47.0); Hemoglobin 9.2 g/dL (11.5-15.3); Mean Corpuscular HGB Conc 31.6 g/dL (30.0-36.0); Mean Corpuscular Hemoglobin 29.7 pg (28.0-34.0); Mean Corpuscular Volume 93.9 fl (81-99); Mean Platelet Volume 10.3 fL (7.4-10.4); Platelet Count 205 10^3/cmm (130-400); Red Cell Distribution Width 14.9 % (12.1-15.1); White Blood Count 14.3 10^3/uL (4.0-10.0)
[2022-07-02] MEDS: ibuprofen 800 mg tablet PO (20:06)
[2022-07-03] MEDS: HYDROcodone-acetaminophen 5-325 mg Tablet PO ×2 (03:30→20:25)
[2022-07-03 04:32] VITALS: BP 110/63; PULSE 97
--- NOTE | 2022-07-03 07:23 | PM.OBGYPN ---
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 Patient has been up out of bed and urinated on her own. Patient's pain is controlled on current medications. Patient has no concerns today. There were no nursing concerns. Labor: Station: -2 Amniotic Membrane Status: Leaking Monitor Mode: External Contraction Pattern: Occasional Post /CS: Patient comments OB post-: no complaints, pain well controlled and tolerating diet baby status: doing well and nursing well feeding status: exclusively breast feeding Vitals/I&O/Wt Last Vital Signs Temp 97.0 F L 07/02/22 08:42 Pulse 97 07/03/22 04:32 Resp 16 07/02/22 02:20 BP 110/63 07/03/22 04:32 Pulse Ox 98 07/01/22 22:05 O2 Del Method 07/01/22 22:05 Physical Exam Const: COMMON NORMALS: no acute distress and healthy appearing Neck/C-Spine: COMMON NORMALS: supple Resp: COMMON NORMALS: normal respiratory effort and No retractions Cardio: COMMON NORMALS: regular rate and regular rhythm RATE: regular rate RHYTHM: regular rhythm GI: COMMON NORMALS: Normal to inspection, nondistended, normoactive bowel sounds present and Soft to palpation PALPATION: Yes Soft to palpation Extremity: COMMON NORMALS: no clubbing, cyanosis or edema Neuro: COMMON NORMALS: moves all extremities Psych: COMMON NORMALS: mental status grossly normal and normal affect Skin: COMMON NORMALS: no rashes or lesions noted GENERAL SKIN EXAM: no rashes or lesions noted WOUNDS: Yes surgical site (CDI) Urinary Catheter Management: Rose: Cath Placed During This Visit: yes, but has since been removed by the nurse Reason for Continuing Indwelling Catheter: Decision to DC Catheter Urinary Catheter Date of Insertion: 07/01/22 Urinary Catheter Time of Insertion: 07:15 Date Urinary Catheter Removed: 07/02/22 Time Urinary Catheter Discontinued: 10:00 Data 07/02/22 10:05 A&P Assessment and plan (1) care following delivery: Continue routine care. Attestations Medical Necessity Statement*: Anticipate discharge tomorrow Coding Level of Care Code Acute Pipe Foreman for Chg Fwd Diagnoses care following delivery Z39.2
[2022-07-03] MEDS: prenatal vitamin Capsule 1 CAP PO (09:50)
[2022-07-03] MEDS: ferrous sulfate EC 325 mg Tablet PO ×2 (09:50→20:33)
[2022-07-03] MEDS: ibuprofen 800 mg tablet PO ×3 (09:51→20:25)
[2022-07-03] MEDS: docusate sodium 100 mg Capsule PO ×2 (09:51→20:25)
[2022-07-03 09:53] VITALS: BP 112/64; PULSE 96; TEMP 36.1
[2022-07-03 15:50] VITALS: BP 113/76; PULSE 101
[2022-07-03 22:13] VITALS: BP 121/65; PULSE 85; TEMP 36.1
[2022-07-04] MEDS: HYDROcodone-acetaminophen 5-325 mg Tablet PO ×3 (00:32→13:14)
[2022-07-04 03:56] VITALS: BP 120/82; PULSE 96; TEMP 36.1
--- NOTE | 2022-07-04 07:18 | PM.OBGYDC ---
Discharge Providers PIPELINE INTEGRITY ENGINEER Date of Admission: 06/30/22 21:30 Date of Discharge: 07/04/22 Attending Provider at Admission: Aidan Gonzalez MD Attending Provider at Discharge: Aidan Gonzalez MD Primary Care Provider: Evgeny Camara MD Diagnoses at Discharge Discharge Diagnosis (1) care following delivery: Status: Acute Reason for Visit Reason for Visit: possible srom Brief History: This is a 21 y/o that presented with PROM Hospital Course Hospital Course The patient was found to be ruptured, but was not actively ana. Pitocin was started and the patient eventually started ana regularly. The contractions continued to increase to the point the patient wanted epidural. contractions were augmented over the next 20hours with only minimal changes. After discussion of options the patient had decided to proceed with for failure to progress. Patient underwent without incident or complication. Patient's care was unremarkable. Patient's pain was well controlled with oral medications. Lochia was appropriate. Information Peripartum Data: Infant Delivery Method: Physical Exam Const: COMMON NORMALS: no acute distress and healthy appearing Neck/C-Spine: COMMON NORMALS: supple Resp: COMMON NORMALS: normal respiratory effort and No retractions Cardio: COMMON NORMALS: regular rate and regular rhythm RATE: regular rate RHYTHM: regular rhythm GI: COMMON NORMALS: Normal to inspection, nondistended, normoactive bowel sounds present and Soft to palpation PALPATION: Yes Soft to palpation Extremity: COMMON NORMALS: no clubbing, cyanosis or edema Neuro: COMMON NORMALS: moves all extremities Psych: COMMON NORMALS: mental status grossly normal and normal affect Skin: COMMON NORMALS: no rashes or lesions noted GENERAL SKIN EXAM: no rashes or lesions noted WOUNDS: Yes surgical site (CDI) Urinary Catheter Management: Rose: Cath Placed During This Visit: yes, but has since been removed by the nurse Reason for Continuing Indwelling Catheter: Decision to DC Catheter Urinary Catheter Date of Insertion: 07/01/22 Urinary Catheter Time of Insertion: 07:15 Date Urinary Catheter Removed: 07/02/22 Time Urinary Catheter Discontinued: 10:00 Discharge Data Studies Completed and Pending Laboratory Results WBC 14.3 10^3/uL (4.0-10.0) H 07/02/22 10:05 RBC 3.10 10^6/uL (4.1-5.3) L 07/02/22 10:05 Hgb 9.2 g/dL (11.5-15.3) L 07/02/22 10:05 Hct 29.1 % (37.0-47.0) L 07/02/22 10:05 MCV 93.9 fl (81-99) 07/02/22 10:05 MCH 29.7 pg (28.0-34.0) 07/02/22 10:05 MCHC 31.6 g/dL (30.0-36.0) 07/02/22 10:05 RDW 14.9 % (12.1-15.1) 07/02/22 10:05 Plt Count 205 10^3/cmm (130-400) 07/02/22 10:05 MPV 10.3 fL (7.4-10.4) 07/02/22 10:05 Neut % (Auto) 73.3 % 06/30/22 23:04 Lymph % (Auto) 11.5 % 06/30/22 23:04 [place] % (Auto) 10.7 % 06/30/22 23:04 Eos % (Auto) 0.2 % 06/30/22 23:04 Baso % (Auto) 0.5 % 06/30/22 23:04 Neut # (Auto) 10.78 10^3/uL (1.8-7.7) H 06/30/22 23:04 Lymph # (Auto) 1.7 10^3/uL (0.8-4.8) 06/30/22 23:04 [place] # (Auto) 1.6 10^3/uL (0.2-0.9) H 06/30/22 23:04 Eos # (Auto) 0.0 10^3/uL (0.0-0.8) 06/30/22 23:04 Baso # (Auto) 0.1 10^3/uL (0.0-0.1) 06/30/22 23:04 Nucleated RBC % (auto) 0.1 % 06/30/22 23:04 Nucleated RBCs # 0.0 /100WBC 06/30/22 23:04 Vitals Last Vital Signs Temp 97.0 F L 07/04/22 03:56 Pulse 96 07/04/22 03:56 Resp 16 07/02/22 02:20 BP 120/82 07/04/22 03:56 Pulse Ox 98 07/01/22 22:05 O2 Del Method 07/04/22 04:00 Discharge Plan Discharge Patient Disposition: Home Condition: Stable Prescriptions: New hydrocodone-acetaminophen 5-325 mg Tablet 1 tab PO Q4H PRN (Reason: Moderate To Severe Pain) Qty: 30 0RF Continued acetaminophen [Tylenol] 325 mg Capsule 325 mg PO 1XD PRN (Reason: fever) Vitamin 1 tab PO DAILY Discharge Orders: Discharge Order (Routine); Ordered 07/04/22 Ordered By: Aidan Gonzalez Discharge Diet: Usual diet Discharge Activity: Limit activity as instructed Patient Instructions: Opioid Safety Discharge Attestations PIPELINE INTEGRITY ENGINEER Time Spent in Discharge Care*: less than 30 min Coding Level of Care Code Acute Astronomy Professor for Chg Fwd Diagnoses care following delivery Z39.2
[2022-07-04] MEDS: ferrous sulfate EC 325 mg Tablet PO (08:26)
[2022-07-04] MEDS: ibuprofen 800 mg tablet PO (08:26)
[2022-07-04] MEDS: docusate sodium 100 mg Capsule PO (08:26)
[2022-07-04] MEDS: prenatal vitamin Capsule 1 CAP PO (08:26)
[2022-07-04 10:10] VITALS: BP 121/85; PULSE 100; TEMP 36.8
[2022-07-04 14:26] VITALS: BP 127/84; PULSE 93
[2022-07-04 14:27] VITALS: TEMP 36.5
[2022-07-04 15:00] VITALS: BP 127/84; PULSE 93; RESP 16; TEMP 36.5
== END 2022-07-04 14:57 | disposition home or self-care (01) | DRG 788 ==
PROVIDERS: Admitting Provider Family Medicine; PCP Family Medicine; Visit Provider Family Medicine
PROC: 10D00Z1 Extraction of Products of Conception, Low, Open Approach (ICD-10-PCS; CPT 59514; principal; 2022-07-01 20:30)
DX: O61.0 Failed medical induction of labor (principal); O77.0 Labor and delivery complicated by meconium in amniotic fluid; O99.334 Smoking (tobacco) complicating childbirth; F17.210 Nicotine dependence, cigarettes, uncomplicated; O42.92 Full-term premature rupture of membranes, unspecified as to length of time between rupture and onset of labor; Z3A.39 39 weeks gestation of pregnancy; Z37.0 Single live birth
CPT/HCPCS: 36415; 51702; 59025; 59409; 85025; 85027; 96374; 96376; 98960; 99211; J1885; J2590; J2765; J2795; J3010; J3490; J7030; J7120; J7121

== ENCOUNTER 2023-11-07 05:54 | Inpatient (IN) | payer BC, MEDICAID, SELFPAY ==
[2023-11-07] VITALS (7 sets, daily range): BP systolic 93–117; BP diastolic 59–67; PULSE 70–83; RESP 16–17; O2SAT 100; BMI 33.9
[2023-11-07 06:28] LABS: Basophils # 0.1 10^3/uL (0.0-0.1); Basophils % 0.5 %; Eosinophils # 0.2 10^3/uL (0.0-0.8); Eosinophils % 1.4 %; Hematocrit 35.7 % (36-47); Lymphocytes # 2.6 10^3/uL (0.8-4.8); Lymphocytes % 18.9 %; Mean Corpuscular HGB Conc 32.8 g/dL (30-55); Mean Corpuscular Hemoglobin 29.8 pg (27-33); Mean Corpuscular Volume 91.1 fl (85-98); Mean Platelet Volume 9.7 fL (7.4-10.4); Monocytes # 1.1 10^3/uL (0.2-0.9); Monocytes % 7.9 %; Neutrophils # 9.33 10^3/uL (1.8-7.7); Neutrophils % 68.8 %; Nucleated Red Blood Cells % 0 %; Platelet Count 316 10^3/cmm (157-399); Red Blood Count 3.92 10^6/uL (3.85-5.65); Red Cell Distribution Width 14.8 % (12.1-15.1); White Blood Count 13.56 10^3/uL (3.29-11.43)
[2023-11-07 06:33] LABS: Amphetamines Screen Urine Negative (Negative); Barbiturates Screen Urine Negative (Negative); Benzodiazepines Screen Urine Negative (Negative); Cocaine Screen Urine Negative (Negative); Opiate Screen Urine Negative (Negative); PCP Screen Urine Negative (Negative); THC Screen Urine Negative (Negative)
--- NOTE | 2023-11-07 06:40 | P.HP_ITS ---
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 She denies any acute concerns today. Patient care has been unremarkable except for a brief period of poor care. Consent form for tubal ligation was signed on September 14, 2023. Patient's recent GBS was negative. labs were unremarkable Present Details : 3 Para: 1 Obstetrical complications: none Medical complications OB: none Labs Blood type OB HPI: A (+) positive Rubella: Non-Immune RPR: Negative GBS: Negative HBsAG: Negative Specific History Indications for Section: Repeat Review of Systems 2 General: Reports: 10 or more systems reviewed and unremarkable except in HPI and below Medications/Allergies Home Medications Medication Instructions Recorded Confirmed Last Taken Type Vitamin 1 tab PO DAILY 06/30/22 06/30/22 06/29/22 08:00 History acetaminophen 325 mg capsule 325 mg PO 1XD PRN fever 06/30/22 06/30/22 06/30/22 03:30 History (Tylenol) hydrocodone 5 mg-acetaminophen 325 1 tab PO Q4H PRN Moderate To 07/04/22 Unknown Rx mg tablet Severe Pain #30 tabs Allergies Allergy/AdvReac Type Severity Reaction Status Date / Time albuterol Allergy Unknown Verified 06/13/20 06:13 PFSH COIN MACHINE SERVICER REPAIRER 2 PFSH: Medical History (Updated 11/07/23 @ 06:50 by Aidan Gonzalez MD) Nicotine abuse Alcohol abuse No pertinent past medical history Surgical History (Updated 11/07/23 @ 06:50 by Aidan Gonzalez MD) No pertinent past surgical history Family History (Updated 07/18/20 @ 00:27 by Nando Davies MD) Other Family history non-contributory Social History (Updated 07/18/20 @ 00:27 by Nando Davies MD) Smoking and tobacco/nicotine status: current every day tobacco/nicotine user Alcohol intake: current Substance/Drug Use: current Household members: significant other Housing: House History History History 2 3 Term 1 0 Miscarriages/Ectopic 1 Living Children 1 Physical Exam 2 Const: COMMON NORMALS: no acute distress and healthy appearing Neck/C-Spine: COMMON NORMALS: supple Resp: COMMON NORMALS: normal respiratory effort and No retractions Cardio: COMMON NORMALS: regular rate and regular rhythm RATE: regular rate RHYTHM: regular rhythm GI: OTHER: Gravid uterus Extremity: COMMON NORMALS: no clubbing, cyanosis or edema Neuro: COMMON NORMALS: moves all extremities Psych: COMMON NORMALS: mental status grossly normal and normal affect Skin: COMMON NORMALS: no rashes or lesions noted Data 11/07/23 06:15 Results Labs OB ([facility]): 2 Blood Type Pending 11/07/23 Antibody Screen Pending 11/07/23 Hct 35.7 % (36-47) L 11/07/23 Hgb 11.70 g/dL (11.27-16.99) 11/07/23 Rho(D) Type Pending 11/07/23 Plt Count 316 10^3/cmm (157-399) 11/07/23 HCG, Qual Negative (Negative) 07/17/20 Urine Opiates Screen Negative ng/mL (Negative) 11/07/23 Ur Barbiturates Screen Negative ng/mL (Negative) 11/07/23 Ur Phencyclidine Scrn Negative ng/mL (Negative) 11/07/23 Ur Amphetamines Screen Negative ng/mL (Negative) 11/07/23 U Benzodiazepines Scrn Negative ng/mL (Negative) 11/07/23 Urine Cocaine Screen Negative ng/mL (Negative) 11/07/23 U Marijuana (THC) Screen Negative ng/mL (Negative) 11/07/23 A&P Assessment and plan (1) Multigravida in third trimester: Plan to proceed with repeat low-transverse . Henrik procedure at length with the patient and consent was obtained. (2) 39 weeks gestation of : (3) History of delivery, currently : (4) Request for sterilization: Patient still desires no more children and request sterilization. Consent form originally signed on September 14, 2023. Attestations 2 Medical Necessity Statement*: Admit for repeat low-transverse . Anticipate greater than 2 midnight stay. Coding Level of Care Code Acute Code for Chg Fwd Diagnoses Multigravida in third trimester Z34.83 39 weeks gestation of Z3A.39 History of delivery, currently O34.219 Request for sterilization Z30.2
[2023-11-07] MEDS: lactated ringers 1,000 ML 999 ML IV (06:49)
[2023-11-07] MEDS: metoclopramide 5 mg/mL SDV 2 mL 10 MG IVP (06:49)
[2023-11-07] MEDS: famotidine 20 mg/2 mL INJ IVP (06:49)
[2023-11-07] MEDS: citric acid-sodium citrate 30 mL UDC PO (06:49)
[2023-11-07] MEDS: ceFAZolin 2,000 MG in sodium chloride 0.9% (plus) 50 ML 100 MG IV (06:50)
--- NOTE | 2023-11-07 06:51 | P.ANESASSM_ITS ---
Pre-Anesthetic Assessment Height/Weight: Height 1.65 m Preop Diagnosis: previous c section Operation Date: 11/07/23 07:20 Proposed Procedures p Section Repeat and tubal(Not Applicable) - Aidan Gonzalez MD Familial anesthetic complications: none Was Beta Adrienne taken within 24 hours: N/A Was Clonidine taken within 24 hours: N/A Last intake: sip water at 0500 Last Intake: 23:00 Social No alcohol and No tobacco Exam alert, oriented x 3, clear to auscultation bilaterally and regular rate & rhythm Airway Submandibular: within normal limits Cervical ROM: within normal limits Mallampati: Class II Dentition: full Pulmonary None reported CV/HEM None reported None reported Hepatic None reported GI Gastroesophageal Reflux Disease Metabolic None reported Musc/skel None reported Neuropsych None reported Anesthetic Plan ASA status: 2 Anesthesia: Regional (specify below) (SAB) Medications/Allergies Home Medications Medication Instructions Recorded Confirmed Last Taken Type Vitamin 1 tab PO DAILY 06/30/22 06/30/22 06/29/22 08:00 History acetaminophen 325 mg capsule 325 mg PO 1XD PRN fever 06/30/22 06/30/22 06/30/22 03:30 History (Tylenol) hydrocodone 5 mg-acetaminophen 325 1 tab PO Q4H PRN Moderate To 07/04/22 Unknown Rx mg tablet Severe Pain #30 tabs Allergies Allergy/AdvReac Type Severity Reaction Status Date / Time albuterol Allergy Unknown Verified 06/13/20 06:13 Current Medications Generic Name Dose Route Start Last Admin Trade Name Freq PRN Reason Stop Dose Admin Lactated Ringer's 1,000 mls @ 999 mls/hr 11/07/23 05:55 11/07/23 06:49 Lactated Ringers IV 11/07/23 06:55 999 mls/hr .Q1H1M ONE Administration PFSH Anesthesia Medical History (Updated 11/07/23 @ 06:50 by Aidan Gonzalez MD) Nicotine abuse Alcohol abuse No pertinent past medical history Surgical History (Updated 11/07/23 @ 06:50 by Aidan Gonzalez MD) No pertinent past surgical history Family History (Updated 07/18/20 @ 00:27 by Nando Davies MD) Other Family history non-contributory Social History (Updated 07/18/20 @ 00:27 by Nando Davies MD) Smoking and tobacco/nicotine status: current every day tobacco/nicotine user Alcohol intake: current Substance/Drug Use: current Household members: significant other Housing: House Female Reproductive History : 3 Data Anesthesia 11/07/23 06:15 Short CBC 11/07/23 Range/Units 06:15 WBC 13.56 H (3.29-11.43) 10^3/uL Hgb 11.70 (11.27-16.99) g/dL Hct 35.7 L (36-47) % MCV 91.1 (85-98) fl Plt Count 316 (157-399) 10^3/cmm Neut % (Auto) 68.8 % Neut # (Auto) 9.33 H (1.8-7.7) 10^3/uL Cardiac Studies: 2 No Data to Display
[2023-11-07] MEDS: ceFAZolin 1,000 MG in sodium chloride 0.9% (plus) 50 ML 100 MG IV (07:00)
[2023-11-07] MEDS: tranexamic acid 1,000 MG/100 ML PREMIX 600 MG IV (07:40)
--- NOTE | 2023-11-07 08:58 | P.OP_ITS ---
Operative Report Date of procedure: November 07, 2023 Pre-op diagnosis: Term intrauterine , history of prior low general transverse Post-op diagnosis: Same, viable infant female Procedure done: Repeat lower transverse with tubal ligation Specimens removed/disposition: Bilateral fallopian tubes Surgeon: Aidan Gonzalez MD Anesthesia: Spinal Estimated blood loss (mL): 1,000 Complications: None Condition: stable Brief History: This is a 23-year-old G3, P2 that presented for repeat low-transverse with tubal ligation. No significant complications noted during . Procedure: Patient was taken to the operating room where epidural anesthesia was found to be adequate. She was prepped and draped in the normal sterile fashion in a dorsal supine position with a leftward tilt. Skin incision was made with scalpel and carried out to the underlying layer of fascia which was incised in the midline. Fascial incision was then extended laterally with Jonas scissors bilaterally. The superior aspect of the fascial incision was grasped with Minh clamps elevated and dissected off the rectus muscles with Jonas's. The inferior aspect of the fascial incision was grasped with [place]'s and in likewise manner was elevated and dissected off with Jonas's. Peritoneum was then entered digitally and extended with good visualization of the bladder. Bladder blade was then inserted. Uterine incision was then created in a transverse fashion in the lower uterine segment with scalpel and extended digitally. Amniotic sac was a round with Allis clamp. Clear fluid noted. Infant's head was delivered atraumatically nose and mouth suctioned with bulb, cord clamped and cut and handed off to waiting nursing staff. The placenta was then expressed and uterus exteriorized from the abdomen. And cleared of all clots and debris. Uterine incision was then repaired in a running locked fashion with 0 Vicryl. Left fallopian tube was then grasped with Cammie's and using LigaSure the fallopian tube was transected and removed. Same procedure was performed on the right. Uterine bleeding at the incision was noted so 2-0 Vicryl was then used to imbricate the incision. Excellent hemostasis was noted. Uterus was then returned to the abdomen, gutters were cleared of all clots and debris. Peritoneum was then closed in a running fashion with 3-0 Vicryl. Fascia was then closed with 0 Vicryl in a running fashion. Subcutaneous tissue was closed with 3-0 Vicryl and skin was closed with 4-0 Monocryl on a Cesar needle. The incision was reinforced with Steri-Strips and pressure bandage was over the wound. Sponge, laps, and needle count was correct x2. 2 g Ancef was given prior to the procedure. Patient was taken recovery in stable condition. Related Problem List Diagnoses (1) care following delivery: Proceed with routine post care.
--- NOTE | 2023-11-07 09:05 | ANE.PACU2 ---
Inpatient post-anesthesia follow up: Airway intact: Yes Vital signs: Temperature Pulse Rate 71 Respiratory Rate 16 Blood Pressure 95/65 Pulse Oximetry 100 Oxygen Delivery Me thod Room Air Oxygen Flow Rate Fraction of Inspir ed Oxygen Hydration adequate: Yes Nausea and vomiting: No Pain level: 1 Mental status: Baseline
[2023-11-07] MEDS: dextrose 5%-lactated ringers 1,000 ML 125 ML IV ×2 (09:31→17:49)
[2023-11-07] MEDS: ketorolac 30 mg/mL INJ IVP ×2 (15:44→21:10)
[2023-11-07] MEDS: docusate sodium 100 mg Capsule PO (17:49)
[2023-11-07] MEDS: ferrous sulfate EC 325 mg Tablet PO (17:49)
[2023-11-07 20:05] LABS: Hematocrit 29.9 % (36-47); Mean Corpuscular HGB Conc 32.4 g/dL (30-55); Mean Corpuscular Hemoglobin 29.4 pg (27-33); Mean Corpuscular Volume 90.6 fl (85-98); Mean Platelet Volume 9.7 fL (7.4-10.4); Platelet Count 246 10^3/cmm (157-399); Red Cell Distribution Width 14.6 % (12.1-15.1); White Blood Count 14.13 10^3/uL (3.29-11.43)
[2023-11-08 05:00] VITALS: BP 109/71; PULSE 88; RESP 16; TEMP 36.8; O2SAT 96
--- NOTE | 2023-11-08 06:45 | PM.OBGYPN ---
CLIENT DEVELOPMENT DIRECTOR Subjective Subjective: Interval history: This is a 23-year-old G3, P2 that is postop day 1 from repeat low cervical transverse with tubal ligation. Patient has no acute concerns today. Patient states that her pain is manageable with current medications. The patient is able to ambulate and urinate without difficulty at this time. Patient's bleeding is appropriate. Labor: Amniotic Membrane Status: Intact Post /CS: Patient comments OB post-: pain well controlled and incisional pain [place] baby status: doing well Vitals/I&O/Wt Last Vital Signs Temp 98.2 F 11/08/23 05:00 Pulse 88 11/08/23 05:00 Resp 16 11/08/23 05:00 BP 109/71 11/08/23 05:00 Pulse Ox 96 11/08/23 05:00 O2 Del Method Room Air 11/07/23 05:55 11/07/23 11/07/23 11/08/23 14:59 22:59 06:59 Intake Total 1800 / 1800 1000 / 2800 Output Total 1900 / 1900 1150 / 3050 900 / 3950 Balance -100 / -100 -150 / -250 -900 / -1150 Weight last 48 hrs Weight 92.533 kg Physical Exam Const: COMMON NORMALS: no acute distress and healthy appearing Neck/C-Spine: COMMON NORMALS: supple Resp: COMMON NORMALS: normal respiratory effort and No retractions Cardio: COMMON NORMALS: regular rate and regular rhythm RATE: regular rate RHYTHM: regular rhythm GI: COMMON NORMALS: Soft to palpation PALPATION: Yes Soft to palpation Extremity: COMMON NORMALS: no clubbing, cyanosis or edema Neuro: COMMON NORMALS: moves all extremities Psych: COMMON NORMALS: mental status grossly normal and normal affect Skin: COMMON NORMALS: no rashes or lesions noted GENERAL SKIN EXAM: no rashes or lesions noted WOUNDS: Yes surgical site (Clean dry and intact.) Urinary Catheter Management: Rose Latex: Cath Placed During This Visit: yes, but has since been removed by the nurse Reason for Continuing Indwelling Catheter: Decision to DC Catheter Date Urinary Catheter Removed: 11/07/23 Time Urinary Catheter Discontinued: 21:00 Data 11/07/23 19:50 A&P Assessment and plan (1) care following delivery: Patient is doing well after surgery. Mild anemia noted after surgery but expected. Continue with routine post care. Attestations Medical Necessity Statement*: Patient admitted for repeat low-transverse with tubal ligation. Anticipate 2 midnight stay. Coding Level of Care Code Acute Code for Chg Fwd Diagnoses care following delivery Z39.2
[2023-11-08] MEDS: ferrous sulfate EC 325 mg Tablet PO (07:10)
[2023-11-08] MEDS: HYDROcodone-acetaminophen 5-325 mg Tablet PO ×3 (07:10→18:07)
[2023-11-08] MEDS: ibuprofen 800 mg tablet PO ×3 (10:55→21:42)
[2023-11-08] MEDS: PRENATAL VIT NO.130/IRON/FOLIC 1 EACH TABLET PO (10:56)
[2023-11-08] MEDS: docusate sodium 100 mg Capsule PO ×2 (10:56→21:43)
[2023-11-08 22:29] VITALS: BP 114/80; PULSE 79; RESP 18
[2023-11-09 03:00] VITALS: BP 111/64; PULSE 82; RESP 18; TEMP 36.9
[2023-11-09] MEDS: HYDROcodone-acetaminophen 5-325 mg Tablet PO (05:36)
--- NOTE | 2023-11-09 07:33 | P.DS_ITS ---
Discharge Providers TOOL MACHINIST Date of Admission: 11/07/23 05:54 Date of Discharge: 11/09/23 Attending Provider at Admission: Aidan Gonzalez MD Attending Provider at Discharge: Aidan Gonzalez MD Primary Care Provider: Evgeny Camara MD Diagnoses at Discharge Discharge Diagnosis (1) care following delivery: Status: Acute Hospital Course Hospital Course This is a 23-year-old that presented for repeat low-transverse with tubal ligation. Patient underwent without difficulty. Patient had no complications. Information Peripartum Data: Infant Delivery Method: complications: none Physical Exam Const: COMMON NORMALS: no acute distress and healthy appearing Neck/C-Spine: COMMON NORMALS: supple Resp: COMMON NORMALS: normal respiratory effort and No retractions Cardio: COMMON NORMALS: regular rate and regular rhythm RATE: regular rate RHYTHM: regular rhythm GI: COMMON NORMALS: Soft to palpation PALPATION: Yes Soft to palpation Extremity: COMMON NORMALS: no clubbing, cyanosis or edema Neuro: COMMON NORMALS: moves all extremities Psych: COMMON NORMALS: mental status grossly normal and normal affect Skin: COMMON NORMALS: no rashes or lesions noted GENERAL SKIN EXAM: no rashes or lesions noted WOUNDS: Yes surgical site (Clean dry and intact.) Urinary Catheter Management: Rose Latex: Cath Placed During This Visit: yes, but has since been removed by the nurse Reason for Continuing Indwelling Catheter: Decision to DC Catheter Date Urinary Catheter Removed: 11/07/23 Time Urinary Catheter Discontinued: 21:00 History History History 3 Term 1 0 Miscarriages/Ectopic 1 Living Children 1 Discharge Data Studies Completed and Pending Pending at discharge Category Date Time Status Pathology: Surgical [PTH] Routine Pth 11/07/23 09:05 Received Laboratory Results WBC 14.13 10^3/uL (3.29-11.43) H 11/07/23 19:50 RBC 3.30 10^6/uL (3.85-5.65) L 11/07/23 19:50 Hgb 9.70 g/dL (11.27-16.99) L 11/07/23 19:50 Hct 29.9 % (36-47) L 11/07/23 19:50 MCV 90.6 fl (85-98) 11/07/23 19:50 MCH 29.4 pg (27-33) 11/07/23 19:50 MCHC 32.4 g/dL (30-55) 11/07/23 19:50 RDW 14.6 % (12.1-15.1) 11/07/23 19:50 Plt Count 246 10^3/cmm (157-399) 11/07/23 19:50 MPV 9.7 fL (7.4-10.4) 11/07/23 19:50 Neut % (Auto) 68.8 % 11/07/23 06:15 Lymph % (Auto) 18.9 % 11/07/23 06:15 Yates % (Auto) 7.9 % 11/07/23 06:15 Eos % (Auto) 1.4 % 11/07/23 06:15 Baso % (Auto) 0.5 % 11/07/23 06:15 Neut # (Auto) 9.33 10^3/uL (1.8-7.7) H 11/07/23 06:15 Lymph # (Auto) 2.6 10^3/uL (0.8-4.8) 11/07/23 06:15 Yates # (Auto) 1.1 10^3/uL (0.2-0.9) H 11/07/23 06:15 Eos # (Auto) 0.2 10^3/uL (0.0-0.8) 11/07/23 06:15 Baso # (Auto) 0.1 10^3/uL (0.0-0.1) 11/07/23 06:15 Nucleated RBC % (auto) 0 % 11/07/23 06:15 Nucleated RBCs # 0.0 /100WBC 11/07/23 06:15 Urine Opiates Screen Negative ng/mL (Negative) 11/07/23 06:15 Ur Barbiturates Screen Negative ng/mL (Negative) 11/07/23 06:15 Ur Phencyclidine Scrn Negative ng/mL (Negative) 11/07/23 06:15 Ur Amphetamines Screen Negative ng/mL (Negative) 11/07/23 06:15 U Benzodiazepines Scrn Negative ng/mL (Negative) 11/07/23 06:15 Urine Cocaine Screen Negative ng/mL (Negative) 11/07/23 06:15 U Marijuana (THC) Screen Negative ng/mL (Negative) 11/07/23 06:15 Blood Type A Positive 11/07/23 06:15 Rho(D) Type Rh positive 11/07/23 06:15 Antibody Screen Negative 11/07/23 06:15 Vitals Last Vital Signs Temp 98.4 F 11/09/23 03:00 Pulse 82 11/09/23 03:00 Resp 18 11/09/23 03:00 BP 111/64 11/09/23 03:00 Pulse Ox 96 11/08/23 05:00 O2 Del Method Room Air 11/07/23 05:55 Results Labs OB ([facility]): Blood Type A Positive 11/07/23 Antibody Screen Negative 11/07/23 Hct 29.9 % (36-47) L 11/07/23 Hgb 9.70 g/dL (11.27-16.99) L 11/07/23 Rho(D) Type Rh positive 11/07/23 Plt Count 246 10^3/cmm (157-399) 11/07/23 HCG, Qual Negative (Negative) 07/17/20 Urine Opiates Screen Negative ng/mL (Negative) 11/07/23 Ur Barbiturates Screen Negative ng/mL (Negative) 11/07/23 Ur Phencyclidine Scrn Negative ng/mL (Negative) 11/07/23 Ur Amphetamines Screen Negative ng/mL (Negative) 11/07/23 U Benzodiazepines Scrn Negative ng/mL (Negative) 11/07/23 Urine Cocaine Screen Negative ng/mL (Negative) 11/07/23 U Marijuana (THC) Screen Negative ng/mL (Negative) 11/07/23 Discharge Plan Discharge Patient Disposition: Home Condition: Stable Prescriptions: New hydrocodone-acetaminophen 5-325 mg Tablet 1 - 2 tab PO Q4H PRN (Reason: Moderate To Severe Pain) Qty: 20 0RF Continued Vitamin 1 tab PO DAILY Discontinued acetaminophen [Tylenol] 325 mg Capsule 325 mg PO 1XD PRN (Reason: fever) hydrocodone-acetaminophen 5-325 mg Tablet 1 tab PO Q4H PRN (Reason: Moderate To Severe Pain) Qty: 30 0RF Discharge Orders: Discharge Order (Routine); Ordered 11/09/23 Ordered By: Aidan Gonzalez Referrals: Aidan Gonzalez MD [Physician] - 1 week Discharge Diet: Usual diet Discharge Activity: Limit activity as instructed Patient Instructions: Depression (DC), Opioid Safety (DC), Pr eeclampsia and Eclampsia After Delivery (GEN), (DC), Hemorrhage (DC), OB Discharge Report, OB Food/Drug Interaction Guide, OB Care at Home, Opioid Safety, Abnormal Bleeding Discharge Attestations TOOL MACHINIST Time Spent in Discharge Care*: less than 30 min Coding Level of Care Code Acute Code for Chg Fwd Diagnoses care following delivery Z39.2
[2023-11-09] MEDS: PRENATAL VIT NO.130/IRON/FOLIC 1 EACH TABLET PO (08:30)
[2023-11-09] MEDS: ibuprofen 800 mg tablet PO (08:30)
[2023-11-09] MEDS: docusate sodium 100 mg Capsule PO (08:30)
[2023-11-09 09:39] VITALS: BP 128/80; PULSE 83; TEMP 36.4; O2SAT 99
[2023-11-09] MEDS: measles,mumps,rubella pf Vial (w/diluent) 0.5 ML SUBCUT (09:43)
== END 2023-11-09 10:30 | disposition home or self-care (01) | DRG 785 ==
PROVIDERS: Admitting Provider Family Medicine; PCP Family Medicine; Visit Provider Family Medicine
PROC: 10D00Z1 Extraction of Products of Conception, Low, Open Approach (ICD-10-PCS; CPT 59514; principal; 2023-11-07 07:00)
DX: O99.334 Smoking (tobacco) complicating childbirth (principal); F17.200 Nicotine dependence, unspecified, uncomplicated; O34.211 Maternal care for low transverse scar from previous cesarean delivery; N85.8 Other specified noninflammatory disorders of uterus; Z3A.39 39 weeks gestation of pregnancy; Z37.0 Single live birth
CPT/HCPCS: 36415; 59025; 59409; 80306; 85025; 85027; 86850; 86900; 88302; 90707; 96372; 96374; 96376; J0690; J1885; J2274; J2405; J2765; J3490; J7120; J7121